=== PATIENT | male | born 1960 | race African-American/Black ===

== ENCOUNTER 2018-01-20 13:51 | Emergency (ER) | payer MEDICAID, OTHER ==
[2018-01-20] MEDS ORDERED: OXYCODONE-ACETAMINOPHEN 5-325 MG TABLET PO ONE (15:29)
[2018-01-20] MEDS ORDERED: ONDANSETRON 4 MG TAB.RAPDIS PO ONE (15:30)
--- NOTE | 2018-01-20 15:30 | ER Document Report ---
ED Medical Screen (RME) - General Chief Complaint: Back Pain Stated Complaint: BACK PAIN Time Seen by Provider: 01/20/18 15:03 Mode of Arrival: Ambulatory Information source: Patient Notes: 57-year-old male presents to ED for right flank pain that is causing him to have shortness of breath at times. He states that the pain is severe and wraps around to his abdomen. He states he is on chronic pain management for back pain to the lower back another bony pains but this is different and goes around to the right side of his abdomen. He is on hydrocodone and Robaxin for his chronic pain. He states he also has a history of PTSD sleep apnea high blood pressure coronary artery disease heart attacks cholesterol and has coronary stents. Lungs are clear. Pain is to the right CVA around to the right abdomen. I have greeted and performed a rapid initial assessment of this patient. A comprehensive ED assessment and evaluation of the patient, analysis of test results and completion of medical decision making process will be conducted by an additional ED providers. TRAVEL OUTSIDE OF THE [place] IN LAST 30 DAYS: No - Related Data Allergies/Adverse Reactions: No Known Allergies Allergy (Unverified 01/20/18 13:57) Physical Exam - Vital signs Vitals: Temp Pulse Resp BP Pulse Ox 99.7 F 97 18 105/64 99 01/20/18 14:05 01/20/18 14:05 01/20/18 14:05 01/20/18 14:05 01/20/18 14:05 Course - Vital Signs Vital signs: Temp Pulse Resp BP Pulse Ox 99.7 F 97 18 105/64 99 01/20/18 14:05 01/20/18 14:05 01/20/18 14:05 01/20/18 14:05 01/20/18 14:05 Doctor's Discharge - Discharge Referrals: LOCAL,NO [Primary Care Provider] - Follow up as needed
[2018-01-20 15:55] LABS: APPEARANCE,URINE CLEAR; BILIRUBIN,URINE NEGATIVE (NEGATIVE); COLOR,URINE YELLOW; GLUCOSE, URINE NEGATIVE (NEGATIVE); KETONES,URINE NEGATIVE (NEGATIVE); LEUKOCYTE ESTERASE,URINE TRACE (NEGATIVE); NITRITE,URINE NEGATIVE (NEGATIVE); PROTEIN,URINE NEGATIVE (NEGATIVE); URINE SPECIFIC GRAVITY 1.014
[2018-01-20 16:06] LABS: ABSOLUTE LYMPHOCYTES (AUTO) 2.6 10^3/uL (0.5-4.7); ABSOLUTE MONOCYTES (AUTO) 0.8 10^3/uL (0.1-1.4); ABSOLUTE NEUT (AUTO) 5.1 10^3/uL (1.7-8.2); BASOPHILS % (AUTO) 0.3 % (0-2); EOSINOPHILS % (AUTO) 0.4 % (0-6); HEMATOCRIT 39.3 % (37.9-51.0); LYMPHOCYTES % (AUTO) 30.8 % (13-45); MEAN CORPUSCULAR HEMOGLOBIN 30.2 pg (27.0-33.4); MEAN CORPUSCULAR HGB CONC 33.1 g/dL (32.0-36.0); MEAN CORPUSCULAR VOLUME 91 fl (80-97); MONOCYTES % (AUTO) 9.5 % (3-13); PLATELET COUNT 236 10^3/uL (150-450); RED CELL DISTRIBUTION WIDTH 14.1 % (11.5-14.0); TOTAL CELLS COUNTED % (AUTO) 100 %; WHITE BLOOD COUNT 8.6 10^3/uL (4.0-10.5)
--- NOTE | 2018-01-20 16:39 | RADIOLOGY REPORT (SQ) ---
EXAM DESCRIPTION: CT ABD/PELVIS NO ORAL OR IV COMPLETED DATE/TIME: 01/20/2018 4:13 pm REASON FOR STUDY: right flank pain COMPARISON: None. TECHNIQUE: CT scan of the abdomen and pelvis performed without intravenous or oral contrast. Images reviewed with lung, soft tissue, and bone windows. Reconstructed coronal and sagittal MPR images revi ewed. All images stored on PACS. All CT scanners at this facility use dose modulation, iterative reconstruction, and/or weight based d osing when appropriate to reduce radiation dose to as low as reasonably achievable (ALARA). [facility]: Dose Right [facility]: CareDose [facility]: Dose Right [facility]: Teradose 4D [facility]: Smart [employer] RADIATION DOSE: CT Rad equipment meets quality standard of care and radiation dose reduction techniq ues were employed. CTDIvol: 17.7 mGy. DLP: 954 mGy-cm.mGy. LIMITATIONS: None. FINDINGS: LOWER CHEST: Trace pericardial effusion. Small right pleural effusion with scattered pare nchymal densities in the lung bases, right greater than left. NON-CONTRASTED LIVER, SPLEEN, ADRENALS: Evaluation limited by lack of IV contrast. No identified sign ificant masses. PANCREAS: No masses. No peripancreatic inflammatory changes. GALLBLADDER: No identified stones by CT criteria. No inflammatory changes to suggest cholecystitis. RIGHT KIDNEY AND URETER: No suspicious masses. Assessment limited by lack of IV contrast. 8 mm calc ulus in the distal right ureter at at the level of the mid sacrum. Moderate hydronephrosis and hydr oureter. LEFT KIDNEY AND URETER: No suspicious masses. Assessment limited by lack of IV contrast. No signifi cant calcifications. No hydronephrosis or hydroureter. AORTA AND RETROPERITONEUM: No aneurysm. No retroperitoneal masses or adenopathy. BOWEL AND PERITONEAL CAVITY: No obvious masses or inflammatory changes. No free fluid. APPENDIX: Not visualized. PELVIS, BLADDER, AND ABDOMINAL WALL:No abnormal masses. No free fluid. Bladder normal. BONES: No significant findings. OTHER: No other significant finding. IMPRESSION: 1. 8 MM CALCULUS IN THE DISTAL RIGHT URETER WITH MODERATE OBSTRUCTION. NO OTHER SIGNIFICANT OR ACUTE PROCESS IN THE ABDOMEN OR PELVIS. 2. SMALL RIGHT PLEURAL EFFUSION. SCATTERED PARENCHYMAL DENSITIES IN THE LUNG BASES, RIGHT GREATER TH AN LEFT. ATELECTASIS VERSUS INFILTRATE. COMMENT: Quality ID # [id number]: Final reports with documentation of one or more dose reduction techniques (e.g., Automated exposure control, adjustment of the mA and/or kV according to patient size, use of iterative reconstruction technique) TECHNICAL DOCUMENTATION: JOB ID: [id number] [employer]- All Rights Reserved Reading location - IP/workstation name: [email or web address]
[2018-01-20 17:17] LABS: ALANINE AMINOTRANSFERASE 22 U/L (21-72); ALBUMIN 3.9 g/dL (3.5-5.0); ALKALINE PHOSPHATASE 50 U/L (38-126); ANION GAP 12 (5-19); ASPARTATE AMINO TRANSFERASE 22 U/L (17-59); BILIRUBIN,DIRECT 0.3 mg/dL (0.0-0.4); BILIRUBIN,TOTAL 0.4 mg/dL (0.2-1.3); BLOOD UREA NITROGEN 10 mg/dL (7-20); CALCIUM 9.1 mg/dL (8.4-10.2); CARBON DIOXIDE 26 mmol/L (22-30); CHLORIDE 101 mmol/L (98-107); GLUCOSE 84 mg/dL (75-110); POTASSIUM 3.7 mmol/L (3.6-5.0); SODIUM 139.4 mmol/L (137-145); TOTAL PROTEIN 7.6 g/dL (6.3-8.2)
--- NOTE | 2018-01-20 19:00 | ER Document Report ---
ED General - General Chief Complaint: Back Pain Stated Complaint: BACK PAIN Time Seen by Provider: 01/20/18 15:03 Mode of Arrival: Ambulatory Notes: Patient is a 57-year-old male that presents to the emergency department for chief complaint of flank and back pain. Patient states has been having right flank pain for approximately 1 week, radiating down into the front. He states he did have some overuse at work about a week ago, but has never had back pain like this before. He denies having any dysuria or hematuria. Denies any fevers , chills, night sweats, but admits to having some nausea, but denies having any vomiting, anterior abdominal pain, chest pain, shortness of breath or difficulty breathing. Past Medical History: Hypertension, hyperlipidemia Past Surgical History: Denies major surgical history Social History: Denies tobacco, alcohol or drug use. Family History: Reviewed and noncontributory for presenting illness Allergies: Reviewed, see documented allergy list. REVIEW OF SYSTEMS: Unless otherwise stated in this report the patient's positive and negative responses for review of systems for constitutional, eyes, ENT, cardiovascular, respiratory, gastrointestinal, neurological, genitourinary, musculoskeletal, and integumentary systems and related systems to the presenting problem are either as stated in the HPI or were not pertinent or were negative for the symptoms and/or complaints related to the presenting medical problem. PHYSICAL EXAMINATION: Vital signs reviewed, nursing noted reviewed. GENERAL: Well-appearing, well-nourished and in no acute distress. But appears uncomfortable HEAD: Atraumatic, normocephalic. EYES: Eyes appear normal, extraocular movements intact, sclera anicteric, conjunctiva are normal. ENT: nares patent, oropharynx clear without exudates. Moist mucous membranes. NECK: Normal range of motion, supple without lymphadenopathy LUNGS: Breath sounds clear to auscultation bilaterally and equal. No wheezes rales or rhonchi. HEART: Regular rate and rhythm without murmurs ABDOMEN: Right flank tenderness with palpation, no anterior abdominal tenderness , soft, normoactive bowel sounds. No rebound, guarding, or rigidity. No masses appreciated. EXTREMITIES: Nontender, good range of motion, no pitting or edema. NEUROLOGICAL: No focal neurological deficits. Moves all extremities spontaneously Motor and sensory grossly intact on exam. PSYCH: Normal mood, normal affect. SKIN: Warm, Dry, normal turgor, no rashes or lesions noted on exposed skin TRAVEL OUTSIDE OF THE [place] IN LAST 30 DAYS: No - Related Data Allergies/Adverse Reactions: No Known Allergies Allergy (Unverified 01/20/18 13:57) Past Medical History - General Information source: Patient - Social History Smoking Status: Never Smoker Frequency of alcohol use: None Drug Abuse: None Family History: Reviewed & Not Pertinent Patient has suicidal ideation: No Patient has homicidal ideation: No - Past Medical History Cardiac Medical History: Reports: Hx Hypercholesterolemia, Hx Hypertension Pulmonary Medical History: Reports: Hx COPD - wears CPAP at night Renal/ Medical History: Denies: Hx Peritoneal Dialysis Past Surgical History: Reports: Hx Cardiac Catheterization - 1 stent placed Physical Exam - Vital signs Vitals: Temp Pulse Resp BP Pulse Ox 99.7 F 97 18 105/64 99 01/20/18 14:05 01/20/18 14:05 01/20/18 14:05 01/20/18 14:05 01/20/18 14:05 Course - Re-evaluation Re-evalutation: Patient seen and examined vital signs reviewed. Laboratory data and imaging were ordered as appropriate for the patient's presenting symptoms and complaint, with consideration of any critical or life threatening conditions that may be associated with their obtained history and exam as noted above. Patient was treated with Percocet, and Zofran The patient was re-evaluated and was improved after receiving pain medication Evaluation was most consistent with right distal ureteral stone, measuring 8 mm , with mild obstruction, patient's creatinine only slightly elevated, given that it is at the distal ureter, has a good chance of being spontaneously passed , will have the patient follow-up with urology, given referral, discharge him home with anti-inflammatory pain medication, Flomax, and advised if he had any fevers, chills, or burning in the urine that he should return to the emergency department, or if he cannot see a urologist in the next 7 days. Also noted was a small right pleural effusion, likely reactive from his kidney stone, no respiratory symptoms on exam, likely atelectasis seen on CT imaging at the lung bases. Results were discussed with the patient at this point, after careful consideration I feel that that patient can be discharged from the emergency department, the patient was educated treatments and reasons to return to the emergency department based on their presumed diagnosis as noted above, they were advised to followup with a primary care physician in 2-3 days. Patient was agreeable to plan of care. *Note is created using voice recognition software and may contain spelling, syntax or grammatical errors. Laboratory 01/20/18 01/20/18 01/20/18 15:30 15:55 15:55 WBC 8.6 RBC 4.30 L Hgb 13.0 L Hct 39.3 MCV 91 MCH 30.2 MCHC 33.1 RDW 14.1 H Plt Count 236 Seg Neutrophils % 59.0 Lymphocytes % 30.8 Monocytes % 9.5 Eosinophils % 0.4 Basophils % 0.3 Absolute Neutrophils 5.1 Absolute Lymphocytes 2.6 Absolute Monocytes 0.8 Absolute Eosinophils 0.0 Absolute Basophils 0.0 Sodium 139.4 Potassium 3.7 Chloride 101 Carbon Dioxide 26 Anion Gap 12 BUN 10 Creatinine 1.24 Est GFR ( Amer) > 60 Est GFR (Non-Af Amer) > 60 Glucose 84 Calcium 9.1 Total Bilirubin 0.4 Direct Bilirubin 0.3 Neonat Total Bilirubin Not Reportable Neonat Direct Bilirubin Not Reportable Neonat Indirect Bili Not Reportable AST 22 ALT 22 Alkaline Phosphatase 50 Total Protein 7.6 Albumin 3.9 Urine Color YELLOW Urine Appearance CLEAR Urine pH 6.0 Ur Specific [place] 1.014 Urine Protein NEGATIVE Urine Glucose (UA) NEGATIVE Urine Ketones NEGATIVE Urine Blood NEGATIVE Urine Nitrite NEGATIVE Urine Bilirubin NEGATIVE Urine Urobilinogen 4.0 H Ur Leukocyte Esterase TRACE H Urine WBC (Auto) 12 Urine RBC (Auto) 1 Urine Mucus (Auto) RARE Urine Ascorbic Acid NEGATIVE Abdomen/Pelvis CT 01/20/18 15:24 IMPRESSION: 1. 8 MM CALCULUS IN THE DISTAL RIGHT URETER WITH MODERATE OBSTRUCTION. NO OTHER SIGNIFICANT OR ACUTE PROCESS IN THE ABDOMEN OR PELVIS. 2. SMALL RIGHT PLEURAL EFFUSION. SCATTERED PARENCHYMAL DENSITIES IN THE LUNG BASES, RIGHT GREATER THAN LEFT. ATELECTASIS VERSUS INFILTRATE. - Vital Signs Vital signs: Temp Pulse Resp BP Pulse Ox 98.7 F 72 13 125/83 97 01/20/18 19:17 01/20/18 19:17 01/20/18 19:17 01/20/18 19:17 01/20/18 19:17 - Laboratory Result Diagrams: 01/20/18 15:55 01/20/18 15:55 Laboratory results interpreted by me: 01/20/18 01/20/18 15:30 15:55 RBC 4.30 L Hgb 13.0 L RDW 14.1 H Urine Urobilinogen 4.0 H Ur Leukocyte Esterase TRACE H Discharge - Discharge Clinical Impression: Ureteral stone, Flank pain Condition: Stable Disposition: HOME, SELF-CARE Instructions: Kidney Stone ([facility]) Additional Instructions: Please return to the emergency department if you have any worsening, or concern of your symptoms. Please return to the emergency department if you develop chest pain, difficulty breathing, severe abdominal pain, or ongoing vomiting. Please follow-up with your primary care physician in 2-3 days and any other recommended physicians. If prescribed, take all medications as directed. If you have any questions or concerns do not hesitate to return the emergency department for evaluation. Prescriptions: Naproxen 500 mg PO BID #30 tablet Ondansetron [Zofran Odt 4 mg Tablet] 1 tab PO Q8H PRN #15 tab.rapdis PRN Reason: For Nausea/Vomiting Oxycodone HCl/Acetaminophen [Percocet 5-325 mg Tablet] 1 - 2 tab PO Q6H PRN #15 tablet PRN Reason: Tamsulosin HCl [Flomax] 0.4 mg PO DAILY #10 cap.er.24h Referrals: URIEL CULP II, MD [LEROY DICK] - Follow up tomorrow (urology )
[2018-01-20 19:20] VITALS: BP 125/83
== END 2018-01-20 19:20 | disposition home or self-care (01) ==
LOC: ER 13:51
DX: N20.1 Calculus of ureter (principal); R10.9 Unspecified abdominal pain; M54.9 Dorsalgia, unspecified; I10 Essential (primary) hypertension
CPT/HCPCS: 99284; 36415; 85025; 80053; 81001; 74176; S0119

== ENCOUNTER → 2019-08-31 | Outpatient (CLI) | payer MEDICAID, MEDICARE ==
--- NOTE | 2019-08-31 11:32 | RADIOLOGY REPORT (SQ) ---
EXAM DESCRIPTION: MRI LUMBAR SPINE WITHOUT IMAGES COMPLETED DATE/TIME: 08/31/2019 9:52 am REASON FOR STUDY: M54.5 LOW BACK PAIN M54.5 LOW BACK PAIN COMPARISON: CT of the abdomen and pelvis without contrast from 01/20/2018. TECHNIQUE: Sagittal and Axial imaging includes T1, T2, STIR and gradient echo sequences. Coronal T2/ HASTE imaging. LIMITATIONS: None. FINDINGS: VISUALIZED UPPER ABDOMEN: Limited evaluation. SEGMENTATION: There are 5 lumbar-type vertebral bodies. There is no transition anatomy at the lumbos acral junction. ALIGNMENT: No scoliotic curvature or spondylolisthesis. VERTEBRAE: The lumbar vertebral body heights are preserved. There is no fracture. BONE MARROW: Heterogeneous without a focal abnormality. DISC SIGNAL: The L5-S1 intervertebral disc space is narrowed and desiccated. POSTERIOR ELEMENTS: Intact. HARDWARE: None in the spine. CORD AND CONUS: The conus medullaris terminates at the level of T12-L1 and it is normal in caliber an d signal intensity. SOFT TISSUES: Chronic atrophy of the right kidney and [id number] right-sided hydroureteroneph rosis. L1-L2: No spinal or foraminal stenosis. L2-L3: No spinal or foraminal stenosis. L3-L4: Mild osteoarthrosis of the facet joints without spinal or foraminal stenosis. L4-L5: Broad-based disc bulge that indents the ventral aspect of the thecal sac and encroaches upon t he inferior aspect of the neuroforamina ; and degeneration of the facet joints. These findings resul ts and no spinal or foraminal stenosis. L5-S1: Broad-based disc bulge eccentric to the right that abuts the intrathecal S1 nerve roots and en croaches upon the inferior aspect of the neuroforamina ; and degeneration of the facet joints. These findings results in a moderate to severe right and mild to moderate left foraminal stenosis. LOWER THORACIC: No stenosis. SACRUM: Intact. OTHER: No other findings. IMPRESSION: 1. Degenerative spondylosis and facet arthropathy of the lumbar spine as detailed above. 2. Chronic moderate to severe right-sided hydroureteronephrosis and atrophy of the right kidney. TECHNICAL DOCUMENTATION: JOB ID: [id number] 2010 [employer]- All Rights Reserved Reading location - IP/workstation name: [email or web address]
== END ==
LOC: RAD 10:06
PROVIDERS: ATTEND Physician Assistant
DX: M47.817 Spondylosis without myelopathy or radiculopathy, lumbosacral region (principal); M54.5 Low back pain; N13.30 Unspecified hydronephrosis; N26.1 Atrophy of kidney (terminal)
CPT/HCPCS: 72148